=== PATIENT | female | born 1980 | race Caucasian/White ===

== ENCOUNTER 2018-01-19 04:02 | Inpatient (IN) | payer OTHER ==
[2018-01-19 04:29] VITALS: BMI 28.3
[2018-01-19] MEDS ORDERED: NS / Oxytocin 40 units/1000ml 1,000 ML IV PRN (05:07)
[2018-01-19] MEDS ORDERED: Lidocaine 1% (PF) 30 ML VIAL SC PRN (05:07)
[2018-01-19] MEDS ORDERED: Promethazine HCl 25 MG/ML VIAL IM PRN ×3 (05:07→14:05)
[2018-01-19] MEDS ORDERED: Meperidine HCl/PF 25 MG/ML VIAL IM/IV PRN (05:07)
[2018-01-19] MEDS ORDERED: Zolpidem Tartrate 5 MG TAB PO PRN ×2 (05:07→14:05)
[2018-01-19] MEDS ORDERED: Acetaminophen 500 MG TAB PO PRN (05:07)
[2018-01-19] MEDS ORDERED: Ondansetron HCl/PF 4 MG/2 ML Vial IVP PRN ×3 (05:07→14:05)
[2018-01-19] MEDS ORDERED: Ibuprofen 800 MG TAB PO PRN (05:07)
[2018-01-19] MEDS ORDERED: Penicillin G Potassium 5 MILL.UNITS in Sodium Chloride 0.9% 100 ML IVPB SCH (05:15)
[2018-01-19] MEDS ORDERED: Lactated Ringer's 1,000 ML IV SCH (05:15)
--- NOTE | 2018-01-19 05:20 | PDOC.LDHP ---
Labor and Delivery H&P Chief complaint: contractions HPI: 37 yo WF presents c/o regular UCs at home since last PM. Denies SROM or bleeding. Current gestational age (weeks): 40 Due date: 01/16/18 Dating criteria: last menstrual period Grav: 4 Para: 3 OB History Details: PNC with Dr. taylor w/o complications. Current complications: none Abnormal US findings: No Current medications: pre-vira vitamins, iron Previous surgical history: none Allergies/Adverse Reactions: Allergies Allergy/AdvReac Type Severity Reaction Status Date / Time codeine Allergy Rash Verified 01/19/18 04:25 Social history: none - Physical Exam Vital signs reviewed and normal: yes General: NAD Lungs: nonlabored breathing Abdomen: gravid Extremeties: trace edema FHT: variability present [place] contractions every: Q 5-7 mins - Vaginal Exam cm dilated: 5 Effacement: 75% Station: -1 - OB Labs Blood type: AB RH: positive Antibody Screen: negative HIV: negative RPR: negative HEPSAg: negative 1 hour GCT: negative GBS: positive - Assessment L&D Assessment: term patient in labor - Plan Plan: admit to L&D, labor augmentation if indicated, GBS antibiotic prophylaxis , informed consent obtained, anesthesia consult for pain management
[2018-01-19] MEDS ORDERED: Penicillin G Potassium 5 MILL.UNITS VIAL ONE (05:32)
[2018-01-19 05:36] LABS: Hemoglobin 11.6 g/dL (12.0-16.0); Mean Corpuscular HGB CONC 35.6 g/dL (32.0-36.0); Mean Corpuscular Hemoglobin 31.1 pg (27.0-31.0); Mean Corpuscular Volume 87.4 fL (78.0-98.0); Mean Platelet Volume 7.5 fL (7.4-10.4); Platelet Count 182 thou/uL (130-400); RBC Distribution Width 13.2 % (11.5-14.5); Red Blood Cell (RBC) Count 3.73 mill/uL (4.20-5.40); White Blood Cell (WBC) Count 10.9 thou/uL (4.8-10.8)
[2018-01-19] MEDS: Lactated Ringer's 1,000 ML IV SCH ×2 (05:36→07:55)
[2018-01-19] MEDS ORDERED: Bupivacaine 0.5% 20 ML, fentaNYL Citrate/PF 400 MCG in Sodium Chloride 0.9% 72 ML EPIDURAL SCH (05:45)
[2018-01-19] MEDS ORDERED: DISCONTINUE ALL PREVIOUS NARCOTICS FS SCH (05:45)
[2018-01-19 06:14] LABS: HBSAg Index 0.21 S/CO (0-0.99); Hep B Surf Ag Non-Reactive S/CO (NonReactive)
[2018-01-19 06:21] LABS: Syphilis Antibody Nonreactive (Nonreactive); Syphilis Antibody Index 0.11 S/CO (<1.00 Non-Reactive)
[2018-01-19] MEDS ORDERED: ePHEDrine/0.9% NaCl/PF SYRINGE 50 mg/10 ml SLOW IVP PRN (07:55)
[2018-01-19] MEDS ORDERED: Lactated Ringer's 500 ML IV PRN (07:55)
[2018-01-19] MEDS ORDERED: diphenhydrAMINE 50 MG/ML VIAL IVP PRN (07:55)
[2018-01-19] MEDS ORDERED: Eucerin (Mineral Oil/Petrolatum,White) 30 gm Jar TOP PRN (07:55)
[2018-01-19] MEDS ORDERED: Acetaminophen 325 MG TAB PO PRN (07:55)
[2018-01-19] MEDS ORDERED: Naloxone HCl 0.4 mg/ml Vial IVP PRN ×2 (07:55)
[2018-01-19] MEDS ORDERED: fentaNYL Citrate/PF 400 MCG, Bupivacaine 0.5% 20 ML in Sodium Chloride 0.9% 72 ML EPIDURAL SCH (08:00)
[2018-01-19] MEDS ORDERED: Communication Order-Pharmacy FS SCH (08:00)
[2018-01-19] MEDS: Penicillin G 2.5 MILL.units 2.5 MILL.UNITS in Premix Bag 1 BAG IVPB SCH ×2 (09:12→14:37)
[2018-01-19] MEDS ORDERED: Preparation H Ointment 28 GM TUBE PR PRN (14:05)
[2018-01-19] MEDS ORDERED: NS / Oxytocin 40 units/1000ml 1,000 ML IV SCH (14:05)
[2018-01-19] MEDS ORDERED: Benzocaine/Menthol 20-0.5% 60 ML CAN TOP PRN (14:05)
[2018-01-19] MEDS ORDERED: Bisacodyl 10 MG SUPP PR PRN (14:05)
[2018-01-19] MEDS ORDERED: diphenhydrAMINE 25 MG CAP PO PRN (14:05)
[2018-01-19] MEDS ORDERED: HYDROcodone/Acetaminophen 5/325 mg Tablet PO PRN ×2 (14:05)
[2018-01-19] MEDS ORDERED: Milk Of Magnesia 30 ML UDCUP PO PRN (14:05)
[2018-01-19] MEDS: Ibuprofen 800 MG TAB PO SCH ×2 (14:37→21:50)
[2018-01-19] MEDS: Ferrous Sulfate 325 MG TAB PO SCH (14:55)
--- NOTE | 2018-01-19 15:58 | OP ---
DATE OF PROCEDURE: 01/19/2018 PREDELIVERY DIAGNOSES: Right occiput transverse presentation with moderate variables after 45 minutes of pushing with complete, complete, +3 station. POSTDELIVERY DIAGNOSES: Right occiput transverse presentation with moderate variables after 45 minutes of pushing with complete, complete, +3 station. PROCEDURE: Low vacuum delivery with first degree midline laceration. SURGEON: Emmett Juares M.D. ANESTHESIA: Epidural. ESTIMATED BLOOD LOSS: 15 mL post-delivery. COMPLICATIONS: None. OPERATIVE FINDINGS: 1. Vigorous male infant, 9 and 9 Apgars, weight pending, nursery. 2. Placenta delivered intact spontaneously approximately 3 minutes post-delivery. 3. A 2-0 chromic repair of first-degree midline perineal laceration. DESCRIPTION OF OPERATIVE PROCEDURE: The patient has been pushing and was noted to be . The hea d would rotate with pushing but occiput transverse. With repetitive moderate to severe variabl es to the 50s and 60s with contractions, decision was made to proceed with low-vacuum delivery. The bladder was drained. Plenty of room was noted anterior and posterior in the pelvis. The vacuum was obtained and taken to yellow level with the next contraction it was taken to the green range with a v acuum of 50. Traction was applied in auto rotation occur to OA from ROT and the delivered wit hin approximately 15-20 seconds of application of vacuum and traction. No pop offs were noted. No n uchal cord was encountered. No shoulder dystocia was noted. The infant was delivered, placed on mat ernal abdomen. After approximately a minute and a half, the cord was clamped and cut. Cord blood sa mple obtained. The placenta delivered spontaneously shortly after. Inspection of the peritoneum and vagina revealed only laceration be a small first degree at the level of the perineum in the midline. This was reapproximated using a 2-0 chromic in usual manner. Counts were correct. EBL was perform ed. The patient was admitted to routine post-delivery recovery and recovery. The patient 's group B strep, but received 2 doses of penicillin prior to delivery.
[2018-01-19] MEDS: Docusate Calcium (SURFAK) 240 MG CAP PO SCH (21:50)
[2018-01-19] MEDS ORDERED: Bupivacaine 0.25% HCL 30 ML VIAL ONE (22:22)
[2018-01-19] MEDS ORDERED: Sodium Chloride 0.9% (PF) 10 ML VIAL ONE (22:22)
[2018-01-19] MEDS ORDERED: ePHEDrine/0.9% NaCl/PF SYRINGE 50 mg/10 ml ONE (22:22)
[2018-01-20] MEDS: Ibuprofen 800 MG TAB PO SCH ×2 (05:34→13:51)
[2018-01-20 08:28] VITALS: BP 99/67; TEMP 98.4
[2018-01-20] MEDS ORDERED: Measles/Mumps/Rubella 10 MCG/0.5 ML VIAL SC ONE (09:00)
[2018-01-20] MEDS ORDERED: Prenatal Vitamin 1 TAB PO SCH (09:00)
[2018-01-20] MEDS ORDERED: Adacel (T-DAP) 0.5 ML VIAL IM ONE (09:00)
[2018-01-20] MEDS: Ferrous Sulfate 325 MG TAB PO SCH (09:13)
[2018-01-20] MEDS: Docusate Calcium (SURFAK) 240 MG CAP PO SCH (09:13)
== END 2018-01-20 16:45 | disposition home or self-care (01) | DRG 775 ==
LOC: L&D/OP 04:02 → L&D 05:07 → 3SW 13:54
PROVIDERS: ADMIT Obstetrics & Gynecology; ATTEND Obstetrics & Gynecology
PROC: 10D07Z6 Extraction of Products of Conception, Vacuum, Via Natural or Artificial Opening (ICD-10-PCS; principal; 2018-01-19)
PROC: 0HQ9XZZ Repair Perineum Skin, External Approach (ICD-10-PCS; 2018-01-19)
DX: O48.0 Post-term pregnancy (principal); Z3A.40 40 weeks gestation of pregnancy; Z37.0 Single live birth; O70.0 First degree perineal laceration during delivery
CPT/HCPCS: 85027; 86780; 86850; 86900; 86901; 87340; J2540; J3010; J3490; J7050; S0020